=== PATIENT | male | born 1975 | race Caucasian/White ===

== ENCOUNTER → 2016-09-13 | Day surgery (SDC) | payer BC ==
[2015-12-01 10:36] VITALS: BMI 30.1
--- NOTE | 2016-09-12 19:19 | SC.ANESPOS ---
Post-Anesthesia Note LOC: [facility] [facility] Calling Post-Anesthesia Assessment: Awake, Returned to Baseline, Hemodynamically Stable , Pain Control Adequate Phase I & II Recovery Complete: Yes Apparent Anesthesia Complication: No : N PACU Discharge Time: 09:20 - Vital Signs Blood Pressure: 127/80 Pulse: 66 Resp Rate: 18 O2 Sat: 98 Temp: 99.1 F - Comments Anesthesia Discharge Time Report Time 09:20
[~2016-09-13] MED LIST: Acetaminophen, Intravenous 1,000 MG/100 ML IVBOT IV ONE; BUPIVACAINE 0.25%-EPINEPHRINE 1:200,000 30 ML ONE; CEFAZOLIN 1 GM VIAL ONE; FENTANYL 100 MCG/2 ML VIAL IV ONE; FENTANYL 100 MCG/2 ML VIAL IV PRN; HYDROmorphone 1 MG INJECTION IV PRN; LABETALOL 20 MG/4 ML SYRINGE IV PRN; LIDOCAINE 4% 5 ML AMPULE NEB ONE; MEPERIDINE 25 MG/ML TUBEX IV PRN; METOCLOPRAMIDE 10 MG/2 ML VIAL IV ONE; MIDAZOLAM 2 MG/2 ML VIAL IV ONE; ONDANSETRON HCL 4 MG ODT TAB PO PRN; ONDANSETRON HCL 4 MG/2 ML VIAL IV ONE; ONDANSETRON HCL 4 MG/2 ML VIAL IV PRN; OXYCODONE HCL 5 MG TABLET ONE; PROMETHAZINE 25 MG/ML VIAL IV PRN; PROPOFOL 200 MG/20 ML VIAL IV ONE; hydrALAZINE 20 MG/ML VIAL IV PRN
--- NOTE | 2016-09-13 06:46 | HIM.ANES ---
Anesthesia Evaluation & Plan Diagnoses: UNIL INGUINAL HERNIA, W/O OBST OR GANGR, NOT SPCF RECUR (09/13/16) - Focused Review of Systems Cardiac History: Yes: Hx Hypertension, Hx Cardiac Disorders HEENT: Yes: Other HEENT Problems Hx Other HEENT Problems: POST NASAL DRAINAGE, ALLERGIC RHINNITIS Respiratory: Yes: Hx Snoring Gastrointestinal: Yes: Hx Gastrointestinal Disorders, Hx Colonoscopy (1998) Neurological/Musculoskeletal: No: Hx Neurological Disorders Psychological: Yes Hx Anxiety, Yes Hx Mental/Emotional Disorders HX Other Psyco/Soc Problems: INSOMNIA DUE TO WORK SCHEDULE Endocrine: Yes: Hx Non-Insulin Dependent Diabetes Blood/Autoimmune: No: Hx AIDS, Hx Hepatitis (type) Smoking Status: Heavy tobacco smoker (5 or more cigarettes/day or daily pipe/ cigar) - Focused Physical Exam Mallampati: Class II Thyromental Distance: Greater than 3 Neck: Full Range of Motion Dental: Other (Multiple chipped) Cardiovascular/Chest: Normal Respiratory: Lungs clear Any problems with anesthesia, including nausea and vomiting?: No Any relatives with a history of Malignant Hyperthermia?: No Does the patient have a history of Motion Sickness-: No Other: Allergies Allergy/AdvReac Type Severity Reaction Status Date / Time No Known Allergies Allergy Verified 09/08/16 16:19 Home Medications Medication Instructions Recorded Last Taken Type Amitriptyline HCl [Elavil] 25 mg PO HS 10/05/15 11/30/15 History Canagliflozin/Metformin HCl 1 each PO DAILY 09/08/16 Unknown History [Invokamet 50-1,000 mg Tablet] Diphenhydramine HCl [Sleep Aid] 25 mg PO HS PRN 09/08/16 Unknown History Escitalopram Oxalate [Lexapro] 10 mg PO DAILY 09/08/16 Unknown History Height and Weight Patient's height 6 ft 1 in Patient's weight 103.691 kg BMI 30.1 - Anesthetic Plan Anesthesia Type: General ASA Class: 2 -: I have examined this patient and reviewed the medical record. The patient has been assessed prior to anesthesia. Risks and benefits of anesthesia and anesthetic technique options have been discussed and all questions answered. The patient accepts the risk and desires me to proceed with the planned anesthetic.
[2016-09-13 08:47] VITALS: TEMP 99.1
--- NOTE | 2016-09-13 10:32 | HIMOPRPT ---
DATE OF PROCEDURE: 09/13/16 PREOPERATIVE DIAGNOSIS: Symptomatic incarcerated left inguinal hernia. POSTOPERATIVE DIAGNOSIS: Symptomatic incarcerated left inguinal hernia. PROCEDURE: Inguinal hernia repair with mesh prosthesis SURGEON: Rashaad Griffith MD ORTHO RN: Ginette Gilliam. ANESTHESIA: General Anesthesia ESTIMATED BLOOD LOSS: Minimal COMPLICATIONS: None noted. ANTIBIOTICS: Preoperative antibiotics were given. INDICATIONS: YESSENIA ADAMS is a 41 year-old M patient, who had been found to have symptomatic incarcerated left inguinal hernia. We had evaluated and felt he would benefit from inguinal hernia repair. I explained the risks and benefits of this to him including the risk of infection, bleeding, anesthesia, as well as the unforeseen complications and the risk of recurrence, testicular devascularization, and nerve entrapment. He had understood and agreed and was brought for the above mentioned procedure. PROCEDURE IN DETAIL: The patient was brought to the operating room and placed on the operating room table in supine position. After identification of the patient's site, was given adequate amount of general anesthesia, then prepped and draped in sterile manner. When given okay by Anesthesia, after appropriate time-out, left groin was anesthetized with local anesthesia. An inguinal incision made through the skin and subcutaneous tissues with scalpel dissection. Bleeding was controlled with cautery. Dissection was carried down through subcutaneous tissues. Bridging veins were ligated and divided, and the external oblique was infiltrated with local anesthesia. We incised along the lines of fibers of through the external ring, and then dissected the inguinal floor without any problems. There was noted to be a indirect inguinal hernia. The sac was opened and it was found to have the sigmoid colon as part of the sac. Because of this we closed the sac and then reduced this without any problems. A cord lipoma was excised. At that point, we assured hemostasis, cut a piece of Ultrapro mesh to size and sutured in position using 0-Prolene suture, going along shelving edge of Poupart's ligament and along the conjoined tendon as well. The keyhole defect was closed with 3 interrupted 0-Prolene sutures. So that the cord structures were neither too tight nor too loose and the tip of the finger to go alongside the cord structures. Wound was irrigated. Hemostasis was assured. The external oblique was then closed with 3-0 Vicryl suture and then 2 layers of 3-0 Vicryl suture placed in subcutaneous tissues and 4-0 Monocryl was used to bring the skin incisions together. Dermabond tissue adhesive was applied and allowed to dry. The patient was awoken and taken to recovery room in excellent condition with correct sponge counts and needle counts.
[2016-09-13 10:43] VITALS: PULSE 66
[2016-09-13 15:00] VITALS: BP 127/80
--- NOTE | 2016-09-13 15:43 | SC.ANESPOS ---
Post-Anesthesia Note LOC: Fully Awake Post-Anesthesia Assessment: Awake, Returned to Baseline, Hemodynamically Stable , Pain Control Adequate Phase I & II Recovery Complete: Yes Apparent Anesthesia Complication: No : N PACU Discharge Time: 09:20 - Vital Signs Blood Pressure: 127/80 Pulse: 66 Resp Rate: 18 O2 Sat: 98 Temp: 99.1 F - Comments Anesthesia Discharge Time Report Time 09:20
== END ==
LOC: SDC 05:47
PROVIDERS: ATTEND Surgery
PROC: 0YU60JZ Supplement Left Inguinal Region with Synthetic Substitute, Open Approach (ICD-10-PCS; principal; 2016-09-13 07:15)
DX: K40.30 Unilateral inguinal hernia, with obstruction, without gangrene, not specified as recurrent (principal); D17.6 Benign lipomatous neoplasm of spermatic cord; I10 Essential (primary) hypertension; E11.9 Type 2 diabetes mellitus without complications; F41.9 Anxiety disorder, unspecified; F17.210 Nicotine dependence, cigarettes, uncomplicated; G47.00 Insomnia, unspecified; Z79.84 Long term (current) use of oral hypoglycemic drugs; Z79.899 Other long term (current) drug therapy
CPT/HCPCS: 49507; 82962; C1781; J0131; J0690; J2250; J2405; J2765; J3010; J3490